=== PATIENT | female | born 1975 | race American Indian/Alaskan Native ===

== ENCOUNTER 2016-08-02 20:06 | Emergency (ER) | payer MEDICAID ==
[2016-08-02 20:45] VITALS: BMI 23.1
[2016-08-02 20:48] VITALS: O2SAT 98
--- NOTE | 2016-08-02 22:21 | ED PDOC ---
Arrival/HPI - General Chief Complaint: Back Pain Time Seen by Provider: 08/02/16 21:29 Historian: Patient - History of Present Illness Narrative History of Present Illness (Text): 08/02/16 22:37 41-year-old female presents today with left-sided neck pain and back pain since yesterday. Patient states while at work she was doing lots of heavy lifting and has an achy pain to the left side of the neck and the left upper back. No chest pain or shortness of breath. No fevers or chills. Patient denies urinary symptoms. She states she usually has problems in the left side of the neck. Denies weakness in the extremities. Denies bladder bowel incontinence. No abdominal pain. No other complaints Past Medical History - Provider Review Nursing Documentation Reviewed: Yes - Travel History Have you recently traveled outside [place] w/in the past 3 mons?: No - Infectious Disease Hx of Infectious Diseases: None - Tetanus Immunization Tetanus Immunization: Unknown - Psychiatric Hx Substance Use: No - Anesthesia Hx Anesthesia: No Hx Anesthesia Reactions: No Hx Malignant Hyperthermia: No - Suicidal Assessment Feels Threatened In Home Enviroment: No Family/Social History - Physician Review Nursing Documentation Reviewed: Yes Family/Social History: Unknown Family HX Smoking Status: Former Smoker Hx Alcohol Use: No Hx Substance Use: No Allergies/Home Meds Allergies/Adverse Reactions: Allergies No Known Allergies Allergy (Verified 08/02/16 20:48) Review of Systems - Review of Systems Constitutional: absent: Fatigue, Fevers Respiratory: absent: SOB, Cough Cardiovascular: absent: Chest Pain, Palpitations Gastrointestinal: absent: Abdominal Pain, Constipation, Diarrhea, Nausea, Vomiting Genitourinary Female: absent: Dysuria, Frequency, Hematuria Musculoskeletal: Back Pain, Neck Pain. absent: Arthralgias Skin: absent: Rash, Pruritis Neurological: absent: Headache, Dizziness Physical Exam Vital Signs Reviewed: Yes Vital Signs Temp Pulse Resp BP Pulse Ox 08/02/16 20:48 98.7 F 89 18 107/54 L 98 Temperature: Afebrile Blood Pressure: Normal Pulse: Regular Respiratory Rate: Normal Appearance: Positive for: Well-Appearing, Non-Toxic, Comfortable Pain Distress: None Mental Status: Positive for: Alert and Oriented X 3 - Systems Exam Head: Present: Atraumatic Mouth: Present: Moist Mucous Membranes Neck: Present: Normal Range of Motion, Paraspinal Tenderness (+ left sided paraspinal and trapezius tenderness. ), Trachea Midline. No: Meningeal Signs, MIDLINE TENDERNESS Respiratory/Chest: Present: Clear to Auscultation, Good Air Exchange. No: Respiratory Distress, Accessory Muscle Use Cardiovascular: Present: Regular Rate and Rhythm, Normal S1, S2. No: Murmurs Abdomen: No: Tenderness Back: Present: Normal Inspection, Paraspinal Tenderness (+ minimal left sided thoracic paraspinal tenderness, tenderness inferior left scapula). No: CVA Tenderness, Midline Tenderness Upper Extremity: No: Normal Inspection Lower Extremity: No: Normal Inspection Neurological: No: GCS=15, Speech Normal Skin: Present: Warm, Dry, Normal Color. No: Rashes Psychiatric: Present: Alert, Oriented x 3 Medical Decision Making ED Course and Treatment: 08/02/16 22:46 Patient nontoxic well-appearing in no distress with stable vital signs. toradol and flexeril. Patient reassessment: Feeling better with medications ambulating with a steady gait. Muscle strength 5 out of 5 bilaterally. I advised to followup with the orthopedist within the next 2 days. Return if symptoms worsen persist or new symptoms develop Patient verbalizes understanding of discharge instructions and need for immediate followup. all aspects of this case were discussed the attending of record. Impression: Back pain, neck pain Motrin every 6 hours as needed for pain Flexeril one tablet every 8 hours as needed for muscle spasms: May cause drowsiness Followup with the orthopedist within the next 2 days Followup with primary care physician within the next 2 days Return if symptoms worsen persist or if new symptoms develop - Medication Orders Current Medication Orders: Discontinued Medications Cyclobenzaprine HCl (Flexeril) 10 mg PO STAT STA Stop: 08/02/16 21:37 Last Admin: 08/02/16 22:07 Dose: 10 MG Ketorolac Tromethamine (Toradol) 60 mg IM STAT STA Stop: 08/02/16 21:37 Last Admin: 08/02/16 22:07 Dose: 60 MG IM Administration Charges Document 08/02/16 22:07 ANDREA (Rec: 08/02/16 22:07 ANDREA [id number]) Injection Site MAR Injection Site Right Deltoid Charges for Administration # of IM Administrations 1 Disposition/Present on Arrival - Present on Arrival Any Indicators Present on Arrival: No History of DVT/PE: No History of Uncontrolled Diabetes: No Urinary Catheter: No History of Decub. Ulcer: No History Surgical Site Infection Following: None - Disposition Have Diagnosis and Disposition been Completed?: Yes Diagnosis: Back pain, Neck pain Disposition: HOME/ ROUTINE Disposition Time: 22:30 Patient Plan: Discharge Condition: GOOD Discharge Instructions (ExitCare): Back Pain (ED) Additional Instructions: Motrin every 6 hours as needed for pain Flexeril one tablet every 8 hours as needed for muscle spasms: May cause drowsiness Followup with the orthopedist within the next 2 days Followup with primary care physician within the next 2 days Return if symptoms worsen persist or if new symptoms develop Prescriptions: Cyclobenzaprine [Cyclobenzaprine HCl] 10 mg PO Q8 #10 tab Ibuprofen [Motrin] 600 mg PO Q6H PRN #20 tab PRN Reason: pain/fever reduction Referrals: Graciela Cee MD [Primary Care Provider] - Follow up with primary Michael Liu MD [Staff Provider] - Follow up with primary Forms: WORK NOTE
[2016-08-03 02:47] VITALS: BP 110/67; PULSE 74; RESP 17; TEMP 98.4
== END 2016-08-02 22:50 | disposition home or self-care (01) ==
LOC: ED 20:06
DX: M54.2 Cervicalgia (principal); M54.9 Dorsalgia, unspecified
CPT/HCPCS: 96372; 99283; J1885

== ENCOUNTER 2016-10-25 15:28 | Emergency (ER) | payer MEDICAID ==
[2016-10-25 15:43] VITALS: BP 107/73; PULSE 98; RESP 18; TEMP 98.7; O2SAT 99; BMI 25.0
--- NOTE | 2016-10-25 17:05 | ED PDOC ---
Arrival/HPI - General Chief Complaint: Lower Extremity Problem/Injury Time Seen by Provider: 10/25/16 15:47 Historian: Patient - History of Present Illness Narrative History of Present Illness (Text): 10/25/16 16:54 41yo female present with complaint of b/l ankle swelling and toes pain and nail discoloration. she also complained of left sided crampy neck pain intermittently x months. states she was seen here in ED for the neck pain before. states pain usually resolve with OTC analgesic. She states that toe pain started 2weeks ago. States she stands for prolonged period at a time while at work. Denies calf pain, SOB, chest pain, recent travel, trauma, OCP use, any other complaint. Past Medical History - Provider Review Nursing Documentation Reviewed: Yes - Infectious Disease Hx of Infectious Diseases: None - Tetanus Immunization Tetanus Immunization: Unknown - Psychiatric Hx Substance Use: No - Anesthesia Hx Anesthesia: No Hx Anesthesia Reactions: No Hx Malignant Hyperthermia: No - Suicidal Assessment Feels Threatened In Home Enviroment: No Family/Social History - Physician Review Nursing Documentation Reviewed: Yes Family/Social History: Unknown Family HX Smoking Status: Former Smoker Hx Alcohol Use: Yes Frequency of alcohol use: Socially Hx Substance Use: No Allergies/Home Meds Allergies/Adverse Reactions: Allergies No Known Allergies Allergy (Verified 10/25/16 15:43) Review of Systems - Physician Review All systems were reviewed & negative as marked: Yes - Review of Systems Constitutional: Normal Eyes: Normal ENT: Normal Respiratory: Normal Cardiovascular: Normal Gastrointestinal: Normal Genitourinary Female: Normal Musculoskeletal: Arthralgias (B/L toe pain), Neck Pain Skin: Normal Neurological: Normal Endocrine: Normal Hemo/Lymphatic: Normal Psychiatric: Normal Physical Exam Vital Signs Reviewed: Yes Vital Signs Temp Pulse Resp BP Pulse Ox 10/25/16 17:19 18 99 10/25/16 15:35 98.7 F 98 H 18 107/73 99 Temperature: Afebrile Blood Pressure: Normal Pulse: Regular Respiratory Rate: Normal Appearance: Positive for: Well-Appearing, Non-Toxic, Comfortable Pain Distress: None Mental Status: Positive for: Alert and Oriented X 3 - Systems Exam Head: Present: Atraumatic, Normocephalic Pupils: Present: PERRL Extroacular Muscles: Present: EOMI Conjunctiva: Present: Normal Mouth: Present: Moist Mucous Membranes Neck: Present: Normal Range of Motion. No: MIDLINE TENDERNESS, Paraspinal Tenderness Respiratory/Chest: Present: Clear to Auscultation, Good Air Exchange. No: Respiratory Distress, Accessory Muscle Use Cardiovascular: Present: Regular Rate and Rhythm, Normal S1, S2. No: Murmurs Abdomen: Present: Normal Bowel Sounds. No: Tenderness, Distention, Peritoneal Signs Back: Present: Normal Inspection Upper Extremity: Present: Normal Inspection. No: Cyanosis, Edema Lower Extremity: Present: Normal Inspection, NORMAL PULSES, Normal ROM, Neurovascularly Intact. No: Edema, CALF TENDERNESS, Tenderness, Swelling, Erythema, Deformity, Temperature Abnormalties Neurological: Present: GCS=15, CN II-XII Intact, Speech Normal Skin: Present: Warm, Dry, Normal Color. No: Rashes Psychiatric: Present: Alert, Oriented x 3, Normal Insight, Normal Concentration Medical Decision Making ED Course and Treatment: 10/26/16 01:01 B/L foot xray - No acute finding Result was DW the pt. she was advised to use compression stocking while at work and keep legs elevated at home. Referred to a Meteorological Engineer. TRT ED for any new or worsening symptoms. - RAD Interpretation Radiology Orders: 10/25/16 16:03 FOOT 3 VIEWS BI [RAD] Stat - Medication Orders Current Medication Orders: Discontinued Medications Cyclobenzaprine HCl (Flexeril) 10 mg PO STAT STA Stop: 10/25/16 16:05 Last Admin: 10/25/16 17:15 Dose: 10 mg Ibuprofen (Motrin Tab) 600 mg PO STAT STA Stop: 10/25/16 16:05 Last Admin: 10/25/16 17:14 Dose: 600 mg Disposition/Present on Arrival - Present on Arrival Any Indicators Present on Arrival: No History of DVT/PE: No History of Uncontrolled Diabetes: No Urinary Catheter: No History of Decub. Ulcer: No History Surgical Site Infection Following: None - Disposition Have Diagnosis and Disposition been Completed?: Yes Diagnosis: Neck pain, Toe pain Disposition: HOME/ ROUTINE Disposition Time: 17:10 Patient Plan: Discharge Condition: STABLE Discharge Instructions (ExitCare): Cervical Sprain (ED), Arthralgia (ED) Additional Instructions: Follow up with your Doctor/Meteorological Engineer Wear compression stockings while at work and elevate legs at home Return to ED for any new or worsening symptoms Prescriptions: Cyclobenzaprine [Cyclobenzaprine HCl] 10 mg PO TID #12 tab Ibuprofen [Motrin Tab] 600 mg PO Q6 #20 tab Referrals: Graciela Cee MD [Primary Care Provider] - Follow up with primary Lizzie Ansari DPM [Staff Provider] - Follow up with primary Forms: WORK NOTE
--- NOTE | 2016-10-26 10:53 | RAD ---
PROCEDURE: Bilateral Feet Radiographs. HISTORY: Foot pain COMPARISON: None. FINDINGS: BONES: Right Foot: Normal. No acute fracture. Left Foot: Normal. No acute fracture. JOINTS: Right Foot: Normal. No osteoarthritis. Left Foot: Normal. No osteoarthritis. SOFT TISSUES: Right Foot: Normal. Left Foot: Normal. OTHER FINDINGS: None. IMPRESSION: Normal examination.
== END 2016-10-25 17:20 | disposition home or self-care (01) ==
LOC: ED 15:28
DX: M79.675 Pain in left toe(s) (principal); M79.674 Pain in right toe(s); M54.2 Cervicalgia

== ENCOUNTER 2017-08-20 14:18 | Emergency (ER) | payer BC, MEDICAID ==
[2017-08-20 14:19] VITALS: BMI 25.0
[2017-08-20 14:29] VITALS: BP 117/74; PULSE 81; RESP 16; TEMP 98.7; O2SAT 98
[2017-08-20] MEDS ORDERED: Oxycodone/Acetaminophen 5/325 mg Tab PO STA (14:56)
--- NOTE | 2017-08-20 15:03 | ED PDOC ---
Arrival/HPI - General Chief Complaint: Back Pain Time Seen by Provider: 08/20/17 14:55 Historian: Patient - History of Present Illness Narrative History of Present Illness (Text): 08/20/17 14:56 pt p/w + ~ 1day onset of worsening left lower neck pain/aches/burning/cramping; pt has had similar discomfort/pain to her neck region since 2014; pt states no fever/chills/sweats, no new cp, no sob/palpitations, no abd pain, no n/v, no numbness/tingling, no arm weakness, no urinary/bowel changes, no fall/trauma/ sick contact, no travel; pt states her usual triggers for her pain is due to sudden changes in weather and 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 pt states she usually takes either tylenol/motrin for occasional discomfort relief but the OTC meds are not helping currently pt states her usual pain is ~ 5/10 pt is here for further eval pt's without other complaints pt denied arm weakness/numbness/tingling PCP: DR MASON pt is right hand dominate family hx: HTN/DM, no immediate family member with sudden/early AMI (under 50yo) Time/Duration: 24 hours Symptom Onset: Sudden Symptom Course: Worsening Quality: Stabbing Severity Level: 9, Severe Activities at Onset: Other (working/moving) Context: Home, Work Past Medical History - Provider Review Nursing Documentation Reviewed: Yes - Travel History Have you recently traveled outside [place] w/in the past 3 mons?: No - Past History Past History: No Previous - Infectious Disease Hx of Infectious Diseases: None - Tetanus Immunization Tetanus Immunization: Unknown - Reproductive Menopause: No Currently : No - Psychiatric Hx Psychophysiologic Disorder: No Hx Substance Use: No - Anesthesia Hx Anesthesia: No Hx Anesthesia Reactions: No Hx Malignant Hyperthermia: No - Suicidal Assessment Feels Threatened In Home Enviroment: No Family/Social History - Physician Review Nursing Documentation Reviewed: Yes Family/Social History: No Known Family HX Smoking Status: Former Smoker Hx Alcohol Use: Yes Hx Substance Use: No Hx Substance Use Treatment: No Allergies/Home Meds Allergies/Adverse Reactions: Allergies No Known Allergies Allergy (Verified 08/20/17 14:24) Review of Systems - Review of Systems Constitutional: Normal Eyes: Normal ENT: Normal Respiratory: Normal Cardiovascular: Normal Gastrointestinal: Normal Genitourinary Female: Normal Musculoskeletal: Neck Pain. absent: Back Pain Skin: Normal Neurological: Normal Endocrine: Normal Hemo/Lymphatic: Normal Psychiatric: Normal Physical Exam Vital Signs Reviewed: Yes Vital Signs Temp Pulse Resp BP Pulse Ox 08/20/17 14:24 98.7 F 81 16 117/74 98 08/20/17 14:19 98.7 F 81 16 117/74 98 Temperature: Afebrile Blood Pressure: Normal Pulse: Regular Respiratory Rate: Normal Appearance: Positive for: Well-Appearing, Non-Toxic, Uncomfortable, Other (alert /awake, GCS = 15, oriented x 3, uncomfortable, sitting at the bedside, cooperative, mild distress during exam due to pain) Pain Distress: Mild Mental Status: Positive for: Alert and Oriented X 3 - Systems Exam Head: Present: Atraumatic, Normocephalic Pupils: Present: PERRL, Other (no nystagmus, no photophobia, sclera anicteric, visual field intact b/l) Extroacular Muscles: Present: EOMI Conjunctiva: Present: Normal Ears: Present: Normal Mouth: Present: Moist Mucous Membranes, Normal Teeth, Other (no drooling/stridor , no exudate/lesions, uvula/tongue are midline, no dyspphonia) Pharnyx: Present: Normal Nose (External): Present: Atraumatic Nose (Internal): Present: Normal Inspection Neck: Present: Trachea Midline, Other (+ left lower para-cervical tenderness, + left lateral base of the neck tenderness on exam, decr ROM to neck on rotation looking to the left >> right; no step off, no midline tenderness; no gross deformities noted). No: Meningeal Signs, MIDLINE TENDERNESS Respiratory/Chest: Present: Clear to Auscultation, Good Air Exchange, Other ( CTA b/l, no w/r/r, no accessory muscle use noted, no tachypenia). No: Respiratory Distress, Accessory Muscle Use Cardiovascular: Present: Regular Rate and Rhythm, Normal S1, S2. No: Murmurs Abdomen: Present: Normal Bowel Sounds, Other (well nourished female, no focal tenderness, no masses/rebound/guarding/rigidity, no saez's sign, no mcburney' s point tenderness) Back: Present: Normal Inspection. No: CVA Tenderness, Midline Tenderness Upper Extremity: Present: Normal Inspection, Normal ROM, NORMAL PULSES, Neurovascularly Intact, Capillary Refill < 2s Lower Extremity: Present: Normal Inspection, NORMAL PULSES, Normal ROM, Neurovascularly Intact, Capillary Refill < 2 s Neurological: Present: GCS=15, CN II-XII Intact, Speech Normal Skin: Present: Warm, Normal Color, Other (cap refill < 1sec, no ulcerations, no petechiae, no rashes). No: Rashes Psychiatric: Present: Alert, Oriented x 3 Medical Decision Making ED Course and Treatment: 08/20/17 14:56 Impression: left lower neck pain/radiculopathy i have consider all the differential diagnosis regarding pt's chief medical complaints/clinical findings, including but are not limited to: left lower neck pain/radiculopathy A/P: left lower neck pain/radiculopathy - supportive care - observe/reevaluation 08/20/17 15:35 pt states her pain is improved, 6-/10 pt is made aware of her medical results pt is encouraged no heavy lifting pt will f/u as directed pt will be discharged home Re-evaluation Time: 15:29 Reassessment Condition: Improving,but remains with symptoms - EKG Interpretation EKG Interpretation (Text): 08/20/17 15:30 NSR at 65 bpm, normal axis, no ectopy, no st-t changes, NORMAL EKG; unchanged compare with old ekg 09/2015 Interpreted by ED Physician: Yes Type: 12 lead EKG Comparison: Similar to previous EKG - Medication Orders Current Medication Orders: Discontinued Medications Diazepam (Valium) 5 mg PO ONCE ONE PRN Reason: Protocol Stop: 08/20/17 14:57 Last Admin: 08/20/17 15:14 Dose: 5 mg Ketorolac Tromethamine (Toradol) 30 mg IM STAT STA Stop: 08/20/17 14:58 Last Admin: 08/20/17 15:13 Dose: 30 mg MAR Pain Assessment Document 08/20/17 15:13 SRE (Rec: 08/20/17 15:14 SRE [id number]) Pain Reassessment Is this a pain reassessment? Yes Sleep Is patient sleeping during reassessment? No Presence of Pain Presence of Pain Yes Pain Scale Used Pain Scale Used Numeric Location Pain Location Body Site Neck Description Description Intermittent IM Administration Charges Document 08/20/17 15:13 SRE (Rec: 08/20/17 15:14 SRE [id number]) Charges for Administration # of IM Administrations 1 Oxycodone/Acetaminophen (Percocet 5/325 Mg Tab) 1 tab PO STAT STA Stop: 08/20/17 14:57 Last Admin: 08/20/17 15:14 Dose: 1 tab MAR Pain Assessment Document 08/20/17 15:14 SRE (Rec: 08/20/17 15:14 SRE [id number]) Pain Reassessment Is this a pain reassessment? Yes Sleep Is patient sleeping during reassessment? No Presence of Pain Presence of Pain Yes Pain Scale Used Pain Scale Used Numeric Location Pain Location Body Site Neck Disposition/Present on Arrival - Present on Arrival Any Indicators Present on Arrival: No History of DVT/PE: No History of Uncontrolled Diabetes: No Urinary Catheter: No History of Decub. Ulcer: No History Surgical Site Infection Following: None - Disposition Have Diagnosis and Disposition been Completed?: Yes Diagnosis: Cervical radiculopathy, Neck pain, musculoskeletal Disposition: HOME/ ROUTINE Disposition Time: 15:31 Patient Plan: Discharge Patient Problems: Current Active Problems Problem Status Onset Cervical radiculopathy Acute Neck pain, musculoskeletal Acute Condition: STABLE Discharge Instructions (ExitCare): Radiculopathy (DC), Chronic Neck Pain (DC) Print Language: CANADIAN Additional Instructions: Make sure to see your doctor in 1-2 days DRINK PLENTY OF FLUIDS take your medications as prescribed AVOID heavy weight bearing RETURN TO ED IF worse pain, cant breath, persistent vomiting, high fever >101- 102 for hours, altered behavior, slurr speech, facial changes, focal weakness ( arm/leg or both), unable to urinate, heavy/persistent bleeding, passing out, chest pain, or other medical emergencies Prescriptions: diaZEpam [Valium] 5 mg PO TID PRN #12 tab PRN Reason: Muscle Spasm Ibuprofen [Motrin] 600 mg PO QID PRN #30 tab PRN Reason: Pain, Mild (1-3) oxyCODONE/Acetaminophen [Percocet 5/325 mg Tab] 1 tab PO QID PRN #12 tab PRN Reason: Pain, Moderate (4-7) Referrals: [facility] [Outside] - Follow up with primary Michael Liu MD [Staff Provider] - Follow up with primary Neeraj Parikh MD [Staff Provider] - Follow up with primary Forms: [employer] (Ukrainian), WORK NOTE
--- NOTE | 2017-08-21 09:05 | CARD ---
APPROVED REPORT EKG Measurement Heart [id number] <Conclusion> Normal sinus rhythm Normal ECG No change
== END 2017-08-20 16:05 | disposition home or self-care (01) ==
LOC: ED 14:18
DX: M54.12 Radiculopathy, cervical region (principal); M54.2 Cervicalgia; Z87.891 Personal history of nicotine dependence
CPT/HCPCS: 93005; 96372; 99283; J1885

== ENCOUNTER 2017-10-31 18:14 | Emergency (ER) | payer BC ==
[2017-10-31 20:56] VITALS: BP 178/77; PULSE 83; RESP 18; TEMP 98.5; O2SAT 98
[2017-10-31 20:59] VITALS: BMI 49.1
== END 2017-10-31 20:57 | disposition left against medical advice (07) ==
LOC: ED 18:14
DX: Z02.89 Encounter for other administrative examinations (principal); M54.2 Cervicalgia

== ENCOUNTER 2017-10-31 20:20 | Emergency (ER) | payer BC ==
[2017-10-31 20:59] VITALS: BMI 49.1
--- NOTE | 2017-10-31 21:15 | ED PDOC ---
Arrival/HPI <KevinFuentes - Last Filed: 10/31/17 21:38> - General Historian: Patient - History of Present Illness Time/Duration: > month Symptom Onset: Gradual Symptom Course: Improving Quality: Burning Severity Level: 4 <ColemanButch - Last Filed: 10/31/17 23:23> - General Chief Complaint: Back Pain - History of Present Illness Narrative History of Present Illness (Text): Patient is a 42 year old female with no significant past medical history who presents to the emergency department for evaluation and treatment of neck and back pain which originally began 3 years and exacerbated 2 day ago with no specific provoking event. Denies trauma to areas of pain. States pain originates in the occiput and radiates down to level of T9. Characterizes the pain as being a burning sensation. States she believes stiffness and pain are secondary to working in cold environment. Denies associated headache, visual/ auditory problems, and dizziness. Further denies fever, chills, chest pain, SOB , abdominal pain, nausea, vomiting, diarrhea, constipation, and urinary symptoms. 10/31/17 21:23 (Btuch Cee) Past Medical History - Past History Past History: No Previous - Infectious Disease Hx of Infectious Diseases: None - Tetanus Immunization Tetanus Immunization: Unknown - Psychiatric Hx Psychophysiologic Disorder: No Hx Substance Use: No - Anesthesia Hx Anesthesia: No Hx Anesthesia Reactions: No Hx Malignant Hyperthermia: No - Suicidal Assessment Feels Threatened In Home Enviroment: No <Butch Cee - Last Filed: 10/31/17 23:23> Family/Social History - Physician Review Nursing Documentation Reviewed: Yes Family/Social History: Unknown Family HX Smoking Status: Former Smoker Hx Alcohol Use: Yes Hx Substance Use: No Hx Substance Use Treatment: No <Butch Cee - Last Filed: 10/31/17 23:23> Allergies/Home Meds <KeivnFuentes - Last Filed: 10/31/17 21:38> <Butch Cee - Last Filed: 10/31/17 23:23> Allergies/Adverse Reactions: Allergies No Known Allergies Allergy (Verified 08/20/17 14:24) Review of Systems - Physician Review All systems were reviewed & negative as marked: Yes - Review of Systems Constitutional: Normal Eyes: Normal ENT: Normal Respiratory: Normal Cardiovascular: Normal Gastrointestinal: Normal Genitourinary Female: Normal Musculoskeletal: Neck Pain Skin: Normal Neurological: Normal Endocrine: Normal Hemo/Lymphatic: Normal Psychiatric: Normal <Butch Cee - Last Filed: 10/31/17 23:23> Physical Exam - Systems Exam Head: Present: Atraumatic, Normocephalic Pupils: Present: PERRL Extroacular Muscles: Present: EOMI Conjunctiva: Present: Normal Mouth: Present: Moist Mucous Membranes Neck: Present: Other (stiffness when rotating, limits full range of motion). No : MIDLINE TENDERNESS, Paraspinal Tenderness Respiratory/Chest: Present: Clear to Auscultation, Good Air Exchange. No: Respiratory Distress, Accessory Muscle Use Cardiovascular: Present: Regular Rate and Rhythm, Normal S1, S2. No: Murmurs Abdomen: No: Tenderness, Distention, Peritoneal Signs Back: Present: Normal Inspection Upper Extremity: Present: Normal Inspection. No: Cyanosis, Edema Lower Extremity: Present: Normal Inspection. No: Edema Neurological: Present: GCS=15, CN II-XII Intact, Speech Normal Skin: Present: Warm, Dry, Normal Color. No: Rashes Psychiatric: Present: Alert, Oriented x 3, Normal Insight, Normal Concentration <Butch Cee - Last Filed: 10/31/17 23:23> Medical Decision Making <Fuentes Brown - Last Filed: 10/31/17 21:38> <Butch Cee - Last Filed: 10/31/17 23:23> ED Course and Treatment: 10/31/17 21:38 42 year old female presents to the Emergency department for evaluation of neck and back discomfort. In agreement with resident note, which includes further HPI details. Patient was seen and evaluated with resident, came up with plan and treatment together. (Fuentes Brown) Assessment and Plan: Patient is a 42 year old female with no significant past medical history who presents to the emergency department for evaluation and treatment of neck and back pain Neck/Back Pain - Cervical and thoracic xray - flexeril 10/31/17 21:24 - cervical and thoracic xrays- no acute fractures or dislocations 10/31/17 23:22 - patient ok for discharge to home (Butch Cee) - RAD Interpretation Radiology Orders: 10/31/17 21:13 CERVICAL SPINE AP & LATERAL [RAD] Stat THORACIC SPINE [DORSAL (THORACIC) SPINE] [RAD] Stat - Medication Orders Current Medication Orders: Discontinued Medications Cyclobenzaprine HCl (Flexeril) 5 mg PO STAT STA Stop: 10/31/17 21:15 Last Admin: 10/31/17 22:06 Dose: 5 mg - PA / RADIOLOGY SPECIALIST / Resident Statement / has reviewed & agrees with the documentation as recorded. MD/DO has examined the patient and agrees with the treatment plan. - Scribe Statement The provider has reviewed the documentation as recorded by the Scribe <Fuentes Brown - Last Filed: 10/31/17 21:38> <Butch Cee - Last Filed: 10/31/17 23:23> - Scribe Statement Pat Manuel. All medical record entries made by the Scribe were at my direction and personally dictated by me. I have reviewed the chart and agree that the record accurately reflects my personal performance of the history, physical exam, medical decision making, and the department course for this patient. I have also personally directed, reviewed, and agree with the discharge instructions and disposition. (Fuentes Brown) Disposition/Present on Arrival <Fuentes Brown - Last Filed: 10/31/17 21:38> - Present on Arrival Any Indicators Present on Arrival: No History of DVT/PE: No History of Uncontrolled Diabetes: No Urinary Catheter: No History Surgical Site Infection Following: None - Disposition Have Diagnosis and Disposition been Completed?: Yes Disposition Time: 23:16 Patient Plan: Discharge <Butch Cee - Last Filed: 10/31/17 23:23> - Disposition Diagnosis: Neck ache Disposition: HOME/ ROUTINE Patient Problems: Current Active Problems Problem Status Onset Neck pain Acute Condition: GOOD Discharge Instructions (ExitCare): Generalized Neck Pain (DC) Additional Instructions: DEDRICK GAN, thank you for letting us take care of you today. Your provider was Fuentes Brown MD and you were treated for NECK PAIN. The emergency medical care you received today was directed at your acute symptoms. If you were prescribed any medication, please fill it and take as directed. It may take several days for your symptoms to resolve. Return to the Emergency Department if your symptoms worsen, do not improve, or if you have any other problems. Please contact your doctor or call one of the physicians/clinics you have been referred to that are listed on the Patient Visit Information form that is included in your discharge packet. Bring any paperwork you were given at discharge with you along with any medications you are taking to your follow up visit. Our treatment cannot replace ongoing medical care by a primary care provider outside of the emergency department. Thank you for allowing the [facility] team to be part of your care today. If you had an X-Ray or CT scan: A Radiologist will review the ED reading if any change in treatment is needed we will contact you. If you had a blood, urine, or wound culture: It will take several days for the results, if any change in treatment is needed we will contact you. If you had an STI test: It will take 48 hours for the results. Please call after 1 week if you have not heard back. Prescriptions: Cyclobenzaprine [Flexeril] 5 mg PO TID PRN 7 Days tab PRN Reason: muscle spasm Referrals: Graciela Cee MD [Primary Care Provider] - Follow up with primary Forms: [employer] ([place]), WORK NOTE
[2017-11-01 01:25] VITALS: BP 134/73; PULSE 88; RESP 18; TEMP 98.4; O2SAT 98
--- NOTE | 2017-11-01 08:44 | RAD ---
PROCEDURE: Cervical Spine Radiographs. HISTORY: Pain. COMPARISON: None. FINDINGS: BONES: Mild reversal cervical curvature. No fracture or spondylolisthesis. The odontoid process appears intact. DISC SPACES: Normal. SOFT TISSUES: Normal. No prevertebral soft tissue swelling. OTHER FINDINGS: None. IMPRESSION: Reversal of cervical curvature without fracture or spondylolisthesis identified.
--- NOTE | 2017-11-01 08:46 | RAD ---
HISTORY: pain COMPARISON: No prior. FINDINGS: BONES: Mild straightening of the thoracic curvature without fracture or spondylolisthesis identified. No destructive bony lesion appreciated. DISC SPACES: Minimal inferior thoracic spondylosis at multiple levels. No marked disc height loss or significant endplate sclerosis. SOFT TISSUES: Normal. OTHER FINDINGS: None. 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 Mild straightening of lumbar curvature. No fracture or spondylolisthesis.
== END 2017-10-31 23:20 | disposition home or self-care (01) ==
LOC: ED 20:20
DX: M54.2 Cervicalgia (principal)

== ENCOUNTER 2018-01-03 10:29 | Emergency (ER) | payer BC ==
[2018-01-03 10:57] VITALS: BMI 25.8
--- NOTE | 2018-01-03 10:58 | ED PDOC ---
Arrival/HPI - General Time Seen by Provider: 01/03/18 10:39 Historian: Patient - History of Present Illness Narrative History of Present Illness (Text): 01/03/18 10:57 42yo female with no pmhx who present with complaint of left shoulder pain. She reports history of same pain in the past. states it usually resolve with flexeril, but she ran out of flexeril. States she have seen her Doctor for it and was also seen here in the past for it. Denies chest pain, paresthesia, focal weakness. Past Medical History - Provider Review Nursing Documentation Reviewed: Yes - Past History Past History: No Previous - Infectious Disease Hx of Infectious Diseases: None - Tetanus Immunization Tetanus Immunization: Unknown - Psychiatric Hx Psychophysiologic Disorder: No Hx Substance Use: No - Anesthesia Hx Anesthesia: No Hx Anesthesia Reactions: No Hx Malignant Hyperthermia: No - Suicidal Assessment Feels Threatened In Home Enviroment: No Family/Social History - Physician Review Nursing Documentation Reviewed: Yes Family/Social History: Unknown Family HX Smoking Status: Former Smoker Hx Alcohol Use: Yes Hx Substance Use: No Hx Substance Use Treatment: No Allergies/Home Meds Allergies/Adverse Reactions: Allergies No Known Allergies Allergy (Verified 08/20/17 14:24) Physical Exam Vital Signs Reviewed: Yes Vital Signs Temp Pulse Resp BP Pulse Ox 01/03/18 11:33 98.1 F 80 17 98 01/03/18 11:22 98.3 F 80 19 123/85 99 Temperature: Afebrile Blood Pressure: Normal Pulse: Regular Respiratory Rate: Normal Appearance: Positive for: Well-Appearing, Non-Toxic, Comfortable Pain Distress: None Mental Status: Positive for: Alert and Oriented X 3 - Systems Exam Head: Present: Atraumatic, Normocephalic Pupils: Present: PERRL Extroacular Muscles: Present: EOMI Conjunctiva: Present: Normal Mouth: Present: Moist Mucous Membranes Neck: Present: Normal Range of Motion Respiratory/Chest: Present: Clear to Auscultation, Good Air Exchange. No: Respiratory Distress, Accessory Muscle Use Cardiovascular: Present: Regular Rate and Rhythm, Normal S1, S2. No: Murmurs Abdomen: No: Tenderness, Distention, Peritoneal Signs Back: Present: Normal Inspection Upper Extremity: Present: Normal ROM (With pain on full abduction), NORMAL PULSES, Tenderness (Proximal left shoulder), Neurovascularly Intact, Capillary Refill < 2s. No: Cyanosis, Edema, Deformity Lower Extremity: Present: Normal Inspection. No: Edema Neurological: Present: GCS=15, CN II-XII Intact, Speech Normal Skin: Present: Warm, Dry, Normal Color. No: Rashes Psychiatric: Present: Alert, Oriented x 3, Normal Insight, Normal Concentration Medical Decision Making - Medication Orders Current Medication Orders: Discontinued Medications Cyclobenzaprine HCl (Flexeril) 10 mg PO STAT STA Stop: 01/03/18 11:02 Last Admin: 01/03/18 11:31 Dose: 10 mg Ketorolac Tromethamine (Toradol) 60 mg IM STAT STA Stop: 01/03/18 11:02 Last Admin: 01/03/18 11:30 Dose: 60 mg MAR Pain Assessment Document 01/03/18 11:30 [email or web address] (Rec: 01/03/18 11:30 [email or web address] [id number]) Pain Reassessment Is this a pain reassessment? No Sleep Is patient sleeping during reassessment? No Presence of Pain Presence of Pain Yes Pain Scale Used Pain Scale Used Numeric Location Pain Location Body Site Neck Description Description Constant Intensity of Pain at present 3 Pain Behavior Facial Grimacing Aggravating Factors Changing Position Alleviating Factors/Management Medication Techniques Alleviating Factors Medication IM Administration Charges Document 01/03/18 11:30 [email or web address] (Rec: 01/03/18 11:30 [email or web address] [id number]) Injection Site MAR Injection Site Left Gluteus Arun Charges for Administration # of IM Administrations 1 Disposition/Present on Arrival - Present on Arrival Any Indicators Present on Arrival: No History of DVT/PE: No History of Uncontrolled Diabetes: No Urinary Catheter: No History Surgical Site Infection Following: None - Disposition Have Diagnosis and Disposition been Completed?: Yes Diagnosis: Neck pain Disposition: HOME/ ROUTINE Disposition Time: 12:40 Patient Plan: Discharge Condition: STABLE Additional Instructions: Follow up with your doctor Return to ED for any new or worsening symptoms Prescriptions: Cyclobenzaprine [Cyclobenzaprine HCl] 10 mg PO BID #12 tab Ibuprofen [Motrin Tab] 600 mg PO Q6 #20 tab Referrals: Azalia Dunn MD [Medical Doctor] - Follow up with primary Forms: WORK NOTE
[2018-01-03 11:22] VITALS: BP 123/85; PULSE 80
[2018-01-03 11:34] VITALS: RESP 17; TEMP 98.1; O2SAT 98
== END 2018-01-03 11:33 | disposition home or self-care (01) ==
LOC: ED 10:29
DX: M54.2 Cervicalgia (principal); Z87.891 Personal history of nicotine dependence
CPT/HCPCS: 96372; 99282; J1885

== ENCOUNTER 2018-06-19 20:19 | Emergency (ER) | payer SELFPAY ==
[2018-06-19 20:57] VITALS: BP 122/82; PULSE 84; RESP 18; TEMP 98.1; BMI 23.1
--- NOTE | 2018-06-19 21:21 | ED PDOC ---
Arrival/HPI - General Chief Complaint: Upper Extremity Problem/Injury Time Seen by Provider: 06/19/18 20:55 Historian: Patient - History of Present Illness Narrative History of Present Illness (Text): 42 y/o female with no significant PMH presents to the ED c/o left shoulder pain x 4 years. States the pain worsened over the summer months and has been consistent since that time. Describes pain as an ache that starts in her neck and travels to the left shoulder over the course of the trapezius. Pt has been seen here for this issue in the past, last in december of 2017. States that the pain is usually relieved with flexeril. States that her job requires a lot of standing and repetitive motion, and she has been working more often over the last few months, stating she believes it is contributing to her pain. Also mentions she has not have her LMP in 1.5 months and has been experiencing worsening sinus congestion for the last 2 weeks. Denies fevers, chills, numbness, paresthesias, weakness, chest pain, SOB, trauma/injury, cough, headache, vision changes, dizziness, urinary symptoms, vaginal discharge, vaginal bleeding, pelvic pain, or any other associated symptoms. Past Medical History - Provider Review Nursing Documentation Reviewed: Yes - Past History Past History: No Previous - Infectious Disease Hx of Infectious Diseases: None - Tetanus Immunization Tetanus Immunization: Unknown - Reproductive Currently : No - Cardiac Hx Cardiac Disorders: No - Pulmonary Hx Respiratory Disorders: No - Neurological Hx Neurological Disorder: No - HEENT Hx HEENT Disorder: No - Renal Hx Renal Disorder: No - Endocrine/Metabolic Hx Endocrine Disorders: No - Hematological/Oncological Hx Blood Disorders: No - Integumentary Hx Dermatological Disorder: No - Musculoskeletal/Rheumatological Hx Musculoskeletal Disorders: Yes - Gastrointestinal Hx Gastrointestinal Disorders: No - Genitourinary/Gynecological Hx Genitourinary Disorders: No - Psychiatric Hx Psychophysiologic Disorder: No Hx Substance Use: No - Anesthesia Hx Anesthesia: No Hx Anesthesia Reactions: No Hx Malignant Hyperthermia: No - Suicidal Assessment Feels Threatened In Home Enviroment: No Family/Social History - Physician Review Nursing Documentation Reviewed: Yes Family/Social History: No Known Family HX Smoking Status: Former Smoker Hx Alcohol Use: Yes Hx Substance Use: No Hx Substance Use Treatment: No Allergies/Home Meds Allergies/Adverse Reactions: Allergies No Known Allergies Allergy (Verified 06/19/18 20:49) Review of Systems - Physician Review All systems were reviewed & negative as marked: Yes - Review of Systems Constitutional: Normal. absent: Fevers Eyes: Normal. absent: Vision Changes, Photophobia ENT: Sinus Congestion. absent: Sore Throat Respiratory: Normal. absent: SOB, Cough Cardiovascular: Normal. absent: Chest Pain, Palpitations Gastrointestinal: Normal. absent: Abdominal Pain, Nausea, Vomiting Genitourinary Female: Normal. absent: Dysuria, Frequency Musculoskeletal: Back Pain, Neck Pain. absent: Arthralgias Skin: Normal. absent: Rash Neurological: Normal. absent: Headache, Dizziness Endocrine: Normal Hemo/Lymphatic: Normal Psychiatric: Normal Physical Exam Vital Signs Reviewed: Yes Vital Signs Temp Pulse Resp BP Pulse Ox 06/19/18 20:49 98.1 F 84 18 122/82 96 Temperature: Afebrile Blood Pressure: Normal Pulse: Regular Respiratory Rate: Normal Appearance: Positive for: Well-Appearing, Non-Toxic, Comfortable Pain Distress: None Mental Status: Positive for: Alert and Oriented X 3 - Systems Exam Head: Present: Atraumatic, Normocephalic Pupils: Present: PERRL Extroacular Muscles: Present: EOMI Conjunctiva: Present: Normal Mouth: Present: Moist Mucous Membranes Nose (External): Present: Atraumatic Nose (Internal): Present: Normal Inspection Neck: Present: Normal Range of Motion, Paraspinal Tenderness (left side with tenderness and spasm). No: Meningeal Signs, MIDLINE TENDERNESS Respiratory/Chest: Present: Clear to Auscultation, Good Air Exchange. No: Respiratory Distress, Accessory Muscle Use Cardiovascular: Present: Regular Rate and Rhythm, Normal S1, S2, Peripheal Pulses Present Abdomen: Present: Normal Bowel Sounds. No: Tenderness, Distention, Peritoneal Signs Back: Present: Normal Inspection, Paraspinal Tenderness (left upper trapezius with tenderness and spasm). No: CVA Tenderness Upper Extremity: Present: Normal Inspection, Normal ROM, NORMAL PULSES, Neurovascularly Intact, Capillary Refill < 2s. No: Cyanosis, Edema, Temperature Abnormalties Lower Extremity: Present: Normal Inspection, NORMAL PULSES, Normal ROM, Neurovascularly Intact, Capillary Refill < 2 s. No: Edema, Temperature Abnormalties Neurological: Present: GCS=15, CN II-XII Intact, Speech Normal, Motor Func Grossly Intact, Normal Sensory Function, Gait Normal Skin: Present: Warm, Dry, Normal Color. No: Rashes Lymphatic: No: Cervical Adenopathy Psychiatric: Present: Alert, Oriented x 3, Normal Insight, Normal Concentration, Normal Affect, Normal Mood Medical Decision Making ED Course and Treatment: Initial Plan: * POC preg * UA * Toradol * Valium * Reassess and Disposition POC neg Labwork reviewed, unremarkable Patient reports decreased pain after medications. Advised orthopedic and PMD followup within 2 days Diagnostic testing results and plan of care discussed with patient. Strict instructions given regarding prescription use, importance of followup, and signs/symptoms to return to ER including chest pain, SOB, fever, chills, or any other new/worsening symptoms. Pt verbalized understanding of discussion. Patient is A&Ox3, ambulating with steady gait, with vital signs stable for discharge. - Lab Interpretations Lab Results: Lab Results 06/19/18 21:31: Urine Color yellow, Urine Appearance Clear, Urine pH 6.0, Ur Specific [place] >= 1.030, Urine Protein Trace H, Urine Glucose (UA) Negative, Urine Ketones Trace H, Urine Blood Trace-lysed H, Urine Nitrate Negative, Urine Bilirubin Negative, Urine Urobilinogen 0.2, Ur Leukocyte Esterase Negative, Urine RBC 5 - 10 H, Urine WBC 2 - 5, Ur Epithelial Cells 10 - 12 H I have reviewed the lab results: Yes Disposition/Present on Arrival - Present on Arrival Any Indicators Present on Arrival: No History of DVT/PE: No History of Uncontrolled Diabetes: No Urinary Catheter: No History of Decub. Ulcer: No History Surgical Site Infection Following: None - Disposition Have Diagnosis and Disposition been Completed?: Yes Diagnosis: Muscle spasm, Allergic rhinitis Disposition: HOME/ ROUTINE Disposition Time: 22:30 Patient Plan: Discharge Condition: IMPROVED Discharge Instructions (ExitCare): Seasonal Allergies (DC), Muscle Spasms (DC) Additional Instructions: Flexeril every 12 hours as needed for spasm, do not take before driving or operating heavy machinery Ibuprofen every 8 hours as needed for pain Flonase 2 sprays in each nostril daily Increase fluids Followup with primary doctor within 2 days Followup with orthopedics within 2 days Return to ER with any new/worsening symptoms Prescriptions: Cyclobenzaprine [Cyclobenzaprine HCl] 10 mg PO Q12H PRN #14 tab PRN Reason: Muscle Spasm Fluticasone Propionate [Flonase] 2 spr NS DAILY #1 bottle Ibuprofen [Motrin Tab] 600 mg PO Q8H PRN #30 tab PRN Reason: Pain, Moderate (4-7) Referrals: Michael Liu MD [Staff Provider] - Follow up with primary Forms: [employer] ([place]), WORK NOTE
[2018-06-19 21:42] LABS: URINE BILIRUBIN NEGATIVE (NEGATIVE); URINE BLOOD TRACE-LYSED (NEGATIVE); URINE GLUCOSE (UA) NEGATIVE (NEGATIVE); URINE LEUKOCYTE ESTERASE NEGATIVE Leu/uL (NEGATIVE); URINE PROTEIN TRACE mg/dL (<30 mg/dL); URINE UROBILINOGEN 0.2 E.U./dL (<1 E.U./dL)
[2018-06-19 21:44] LABS: URINE APPEARANCE CLEAR (CLEAR)
[2018-06-19 22:42] VITALS: O2SAT 98
== END 2018-06-19 22:41 | disposition home or self-care (01) ==
LOC: ED 20:19
DX: M62.838 Other muscle spasm (principal); J30.9 Allergic rhinitis, unspecified; Z87.891 Personal history of nicotine dependence
CPT/HCPCS: 81001; 81025; 96372; 99283; J1885

== ENCOUNTER 2018-07-03 19:48 | Emergency (ER) | payer SELFPAY ==
[2018-07-03 19:48] VITALS: BMI 25.8
[2018-07-03 20:02] VITALS: RESP 17
--- NOTE | 2018-07-03 20:47 | ED PDOC ---
Arrival/HPI - General Historian: Patient - History of Present Illness Narrative History of Present Illness (Text): 07/03/18 20:47 Patient is a 42F w/ no significant PMH presenting to ED w/ complaints of lower abdominal pain. Patient reported that lower abdominal pain is a cramping type sensation which began 2 days ago. She reported timing coincided w/ the end of her period for which FDLMP was on 06/26. She reported month prior she did not have her period. She stated that this month period was associated w/ heavier flow and clotting which was unusual for her. Denies any gynecologic history. Denies chest pain, sob, n/v/d/c, urinary symptoms. Denies vaginal discharge, or lesions, Patient is sexually active uses condoms. Time/Duration: Prior to Arrival Symptom Onset: Gradual Symptom Course: Worsening Quality: Cramping <Mariano Cee - Last Filed: 07/03/18 22:15> <Liban Maldonado - Last Filed: 07/05/18 05:44> - General Chief Complaint: Abdominal Pain Time Seen by Provider: 07/03/18 20:26 Past Medical History - Provider Review Nursing Documentation Reviewed: Yes - Past History Past History: No Previous - Infectious Disease Hx of Infectious Diseases: None - Tetanus Immunization Tetanus Immunization: Unknown - Cardiac Hx Cardiac Disorders: No - Pulmonary Hx Respiratory Disorders: No - Neurological Hx Neurological Disorder: No - HEENT Hx HEENT Disorder: No - Renal Hx Renal Disorder: No - Endocrine/Metabolic Hx Endocrine Disorders: No - Hematological/Oncological Hx Blood Disorders: No - Integumentary Hx Dermatological Disorder: No - Musculoskeletal/Rheumatological Hx Musculoskeletal Disorders: Yes - Gastrointestinal Hx Gastrointestinal Disorders: No - Genitourinary/Gynecological Hx Genitourinary Disorders: Yes Hx Urinary Tract Infection: Yes - Psychiatric Hx Psychophysiologic Disorder: No Hx Substance Use: No - Anesthesia Hx Anesthesia: No Hx Anesthesia Reactions: No Hx Malignant Hyperthermia: No - Suicidal Assessment Feels Threatened In Home Enviroment: No <Mariano Cee - Last Filed: 07/03/18 22:15> Family/Social History - Physician Review Nursing Documentation Reviewed: Yes Family/Social History: No Known Family HX Smoking Status: Former Smoker Hx Alcohol Use: Yes Hx Substance Use: No Hx Substance Use Treatment: No <Mariano Cee - Last Filed: 07/03/18 22:15> Allergies/Home Meds <Mariano Cee - Last Filed: 07/03/18 22:15> <Liban Maldonado - Last Filed: 07/05/18 05:44> Allergies/Adverse Reactions: Allergies No Known Allergies Allergy (Verified 07/03/18 19:58) Home Medications: Home Meds Medication Instructions Recorded Confirmed No Known Home Med 07/03/18 07/03/18 Review of Systems - Review of Systems Constitutional: Normal Eyes: Normal ENT: Normal Respiratory: Normal Cardiovascular: Normal Gastrointestinal: Abdominal Pain Genitourinary Female: Normal Musculoskeletal: Normal Skin: Normal Neurological: Normal Endocrine: Normal Hemo/Lymphatic: Normal Psychiatric: Normal <Mariano Cee Filed: 07/03/18 22:15> Physical Exam Vital Signs Temp Pulse Resp BP Pulse Ox 07/03/18 19:58 98.3 F 88 17 117/77 96 Temperature: Afebrile Blood Pressure: Normal Pulse: Regular Respiratory Rate: Normal Appearance: Positive for: Well-Appearing, Non-Toxic, Comfortable Pain Distress: None Mental Status: Positive for: Alert and Oriented X 3 - Systems Exam Head: Present: Atraumatic, Normocephalic Pupils: Present: PERRL Extroacular Muscles: Present: EOMI Conjunctiva: Present: Normal Mouth: Present: Moist Mucous Membranes Neck: Present: Normal Range of Motion Respiratory/Chest: Present: Clear to Auscultation, Good Air Exchange. No: Respiratory Distress, Accessory Muscle Use Cardiovascular: Present: Regular Rate and Rhythm, Normal S1, S2. No: Murmurs Abdomen: No: Tenderness, Distention, Peritoneal Signs Back: Present: Normal Inspection Upper Extremity: Present: Normal Inspection. No: Cyanosis, Edema Lower Extremity: Present: Normal Inspection. No: Edema Neurological: Present: GCS=15, CN II-XII Intact, Speech Normal Skin: Present: Warm, Dry, Normal Color. No: Rashes Psychiatric: Present: Alert, Oriented x 3, Normal Insight, Normal Concentration <Mariano Cee - Last Filed: 07/03/18 22:15> Vital Signs Temp Pulse Resp BP Pulse Ox 07/03/18 19:58 98.3 F 88 17 117/77 96 <Liban Maldonado - Last Filed: 07/05/18 05:44> Medical Decision Making ED Course and Treatment: 07/03/18 20:57 Impression: 42F w/ no significant PMH c/o suprapubic abdominal pain associated w/ menorhagia. r/o ectopic or gynecologic abnormality PLAN: Will performTVUS eval or given missing her previous cycle in may (less liekly) CBC/CMP POC BHCG UA Toradol Progress Notes: 07/03/18 22:15 Patient noted to have uterine fibroid on TVUS Will advise NSAID and outpt follow up w/ OBGYN - Dr. Urias <Mariano Cee - Last Filed: 07/03/18 22:15> ED Course and Treatment: Impression: Pt seen and evaluated with bilingual medical assistant. Aware and agree with HPI, clinical findings, plan, and management. Pt, with no significant past medical history, presented for lower abdominal pain. Plan: -- Transvaginal US -- Labs -- Urinalysis -- Toradol -- Reassess and disposition Transvaginal US: Measures 8.11 x 4.76 x 5.92 cm. Normal in size. Fibroid measures 2.22 x 2.66 x 2.03 cm. Endometrium Measures 15.7 mm in diameter. Unremarkable. Cervix Measures 3.84 cm. Nabothian cyst measures 1.2 x 0.5 cm. Right ovary Measures 2.19 x 2.15 x 2.2 cm. No solid mass. Normal flow. Cyst measures 1.37 x 1.22 x 1.66 cm. Left ovary Measures 1.78 x 1.65 x 1.52 cm. No solid mass. Normal flow. Cyst measures 0.99 x 0.8 x 0.73 cm. Free fluid No significant free fluid noted. Other Findings None. Impression 1. Nabothian cyst. 2. Uterine fibroid. 3. Bilateral ovarian cysts. Electronically signed on Jul 03, 2018 9:52:41 PM EST by: Karthik Anders M.D., REKHA Certified By ABR & CBC[facility] Fellowship Trained MRI and CT Specialist - Lab Interpretations I have reviewed the lab results: Yes - RAD Interpretation Radiology Orders: 07/03/18 20:44 TRANSVAGINAL [US] Stat Transmission Systems Operator: Radiologist - Medication Orders Current Medication Orders: Ketorolac Tromethamine (Toradol) 15 mg IVP STAT STA Stop: 02/26/19 21:09 <Liban Maldonado Last Filed: 07/05/18 05:44> - PA / HEALTH PROMOTION MANAGER / Resident Statement / has reviewed & agrees with the documentation as recorded. / has examined the patient and agrees with the treatment plan. <JoelLiban - Last Filed: 07/05/18 05:44> Disposition/Present on Arrival - Present on Arrival Any Indicators Present on Arrival: No History of DVT/PE: No History of Uncontrolled Diabetes: No Urinary Catheter: No History of Decub. Ulcer: No History Surgical Site Infection Following: None - Disposition Have Diagnosis and Disposition been Completed?: Yes Disposition Time: 22:18 Patient Plan: Discharge <Mariano Cee - Last Filed: 07/03/18 22:15> <Liban Maldonado - Last Filed: 07/05/18 05:44> - Disposition Diagnosis: Uterine fibroid Disposition: HOME/ ROUTINE Condition: GOOD Discharge Instructions (ExitCare): Uterine Fibroids (DC) Additional Instructions: Please follow up with OBGYN within 1 day of discharge If you do not have an OBGYN please follow up w/ Dr. Urias Please take OTC NSAID - Ibuprofen as needed for pain DEDRICK GAN, thank you for letting us take care of you today. Your provider was Liban Maldonado MD/ Mariano Cee DO and you were treated for ABDOMINAL PAIN, LOWER EXTREMITY PROBLEM. The emergency medical care you received today was directed at your acute symptoms. If you were prescribed any medication, please fill it and take as directed. It may take several days for your symptoms to resolve. Return to the Emergency Department if your symptoms worsen, do not improve, or if you have any other problems. Please contact your doctor or call one of the physicians/clinics you have been referred to that are listed on the Patient Visit Information form that is included in your discharge packet. Bring any paperwork you were given at discharge with you along with any medications you are taking to your follow up visit. Our treatment cannot replace ongoing medical care by a primary care provider outside of the emergency department. Thank you for allowing the [facility] team to be part of your care today. If you had an X-Ray or CT scan: A Radiologist will review the ED reading if any change in treatment is needed we will contact you. If you had a blood, urine, or wound culture: It will take several days for the results, if any change in treatment is needed we will contact you. If you had an STI test: It will take 48 hours for the results. Please call after 1 week if you have not heard back. Referrals: Jer Urias MD [Staff Provider] - Follow up with primary Forms: [employer] ([place]), WORK NOTE
[2018-07-03 21:42] LABS: BASO # 0.01 K/mm3 (0.0-2.0); BASO % 0.1 % (0.0-3.0); EOS # 0.7 (0.0-0.7); EOS % 7.5 % (1.5-5.0); HEMOGLOBIN 11.8 g/dL (12.0-16.0); LYMPH # 1.7 (1.2-3.4); LYMPH % 17.9 % (22.0-35.0); MEAN CORPUSCULAR HEMOGLOBIN 29.4 pg (25.0-35.0); MEAN PLATELET VOLUME 9.7 fl (7.0-11.0); MONO # 0.7 (0.1-0.6); MONO % 7.3 % (1.0-6.0); RBC 4.01 10^6/uL (3.5-6.1); RED CELL DISTRIBUTION WIDTH 15.6 % (11.5-14.5); WHITE BLOOD COUNT 9.3 10^3/uL (4.5-11.0)
[2018-07-03 21:43] LABS: ALB/GLOB RATIO 1.2 (1.1-1.8); ALBUMIN 4.1 g/dL (3.0-4.8); ALT/SGPT 11 U/L (7-56); AST/SGOT 18 U/L (14-36); BLOOD UREA NITROGEN 22 mg/dL (7-21); CALCIUM 8.9 mg/dL (8.4-10.5); GFR NON-AFRICAN AMERICAN > 60
[2018-07-03 22:33] VITALS: BP 115/62; PULSE 78; TEMP 98.2; O2SAT 98
--- NOTE | 2018-07-04 12:58 | US ---
Date of service: 07/03/2018 HISTORY: Lower Abdominal Pain COMPARISON: None available. TECHNIQUE: Transvaginal pelvic ultrasound was performed with longitudinal and transverse images submitted for interpretation. FINDINGS: UTERUS: Measures 8.1 x 4.8 x 5.9 cm. Myometrium is moderately heterogeneous with high submucous fibroid identified potentially exophytic within the endometrial cavity measuring 2.2 x 2.3 by 2.0 cm. It is slightly eccentric to the right. No additional myometrial pathology identified focally. ENDOMETRIUM: Measures 15.7 mm in diameter. No focal cystic or solid mass is seen related. CERVIX: Two high nabothian cysts are identified with the cervix otherwise unremarkable. RIGHT OVARY: Measures 2.2 x 2.1 x 2.2 cm. No solid mass. Normal flow. Simple cyst measures 1.4 x 1.2 x 1.7 LEFT OVARY: Measures 1.8 x 1.7 x 1.5 cm. No solid mass. Normal flow. 1.0 x 0.8 x 0.7 cm simple cyst identified. FREE FLUID: No significant free fluid noted. OTHER FINDINGS: None. IMPRESSION: Solitary uterine fibroid Suarez is remarkable for a submucous fibroid possibly exophytic into the endometrial cavity at the high fundus. Nabothian cysts are identified in the cervix. Solitary simple cysts are identified at each ovary as per above.
== END 2018-07-03 22:33 | disposition home or self-care (01) ==
LOC: ED 19:48
DX: D25.0 Submucous leiomyoma of uterus (principal); Z87.891 Personal history of nicotine dependence
CPT/HCPCS: 76830; 80053; 81025; 85025; 96374; 99283; J1885

== ENCOUNTER 2018-07-17 18:55 | Emergency (ER) | payer SELFPAY ==
[2018-07-17 19:01] VITALS: BMI 24.2
--- NOTE | 2018-07-17 19:48 | ED PDOC ---
Arrival/HPI - General Chief Complaint: Abdominal Pain Time Seen by Provider: 07/17/18 19:00 Historian: Patient - History of Present Illness Narrative History of Present Illness (Text): 07/17/18 19:40 Patient reports two day history of epigastric discomfort. Denies pressure or burning, describes the sensation as "feeling like hunger pains". She does state that she has had cravings for a lot of acidic foods lately. Discomfort is not always associated with eating, and is exacerbated when lying down. Also reports nausea and dry mouth. Denies dizziness, syncope, abdominal pain, or dyspnea. No previous medical history including HTN, DM, HLD. Nonsmoker. No family history of CVD. No recent surgery or travel. No hormonal medications. No leg pain or swelling. Time/Duration: < week Symptom Onset: Gradual Symptom Course: Unchanged Activities at Onset: Light Context: Home Past Medical History - Provider Review Nursing Documentation Reviewed: Yes - Past History Past History: No Previous - Infectious Disease Hx of Infectious Diseases: None - Tetanus Immunization Tetanus Immunization: Unknown - Reproductive Menopause: No - Cardiac Hx Cardiac Disorders: No - Pulmonary Hx Respiratory Disorders: No - Neurological Hx Neurological Disorder: No - HEENT Hx HEENT Disorder: No - Renal Hx Renal Disorder: No - Endocrine/Metabolic Hx Endocrine Disorders: No - Hematological/Oncological Hx Blood Disorders: No - Integumentary Hx Dermatological Disorder: No - Musculoskeletal/Rheumatological Hx Musculoskeletal Disorders: Yes - Gastrointestinal Hx Gastrointestinal Disorders: No - Genitourinary/Gynecological Hx Genitourinary Disorders: Yes Hx Urinary Tract Infection: Yes - Psychiatric Hx Psychophysiologic Disorder: No Hx Substance Use: No - Anesthesia Hx Anesthesia: No Hx Anesthesia Reactions: No Hx Malignant Hyperthermia: No - Suicidal Assessment Feels Threatened In Home Enviroment: No Family/Social History - Physician Review Nursing Documentation Reviewed: Yes Family/Social History: Other (NO FMhx of Cardiac disease) Smoking Status: Former Smoker Hx Alcohol Use: Yes Hx Substance Use: No Hx Substance Use Treatment: No Allergies/Home Meds Allergies/Adverse Reactions: Allergies No Known Allergies Allergy (Verified 07/03/18 19:58) Review of Systems - Physician Review All systems were reviewed & negative as marked: Yes - Review of Systems Constitutional: Normal. absent: Fevers ENT: Other (Dry mouth). absent: Hearing Changes, Sore Throat Respiratory: absent: SOB, Cough Cardiovascular: Other (Chest discomfort). absent: Syncope Gastrointestinal: Nausea. absent: Abdominal Pain, Diarrhea, Vomiting Musculoskeletal: absent: Arthralgias, Back Pain, Neck Pain Neurological: absent: Headache, Dizziness Physical Exam Vital Signs Reviewed: Yes Vital Signs Temp Pulse Resp BP Pulse Ox 07/17/18 19:14 98.6 F 111 H 20 120/61 100 Temperature: Afebrile Blood Pressure: Normal Pulse: Tachycardic Respiratory Rate: Normal Appearance: Positive for: Well-Appearing Mental Status: Positive for: Alert and Oriented X 3 - Systems Exam Head: Present: Atraumatic, Normocephalic Pupils: Present: PERRL Extroacular Muscles: Present: EOMI Mouth: Present: Moist Mucous Membranes Respiratory/Chest: Present: Clear to Auscultation, Good Air Exchange, Other (Chest nontender). No: Respiratory Distress, Accessory Muscle Use Cardiovascular: Present: Tachycardic Abdomen: No: Tenderness Upper Extremity: No: Swelling Lower Extremity: No: Swelling Neurological: Present: GCS=15, Speech Normal Skin: Present: Warm Psychiatric: Present: Alert, Oriented x 3, Normal Insight, Normal Concentration Medical Decision Making ED Course and Treatment: 07/17/18 18:54 Impression: 42 year old F presents to the Emergency department complaining of intermittent mid chest discomfort w/ dry mouth and nausea x2days while laying down. Plan: --Labs --EKG --CXR --Pepcid --Reassess and disposition Prior Visits: Notes and results from previous visits were reviewed. Progress Notes: 07/17/18 19:06 EKG shows Sinus Tachycardia at 116 BPM, normal axis, normal intervals, no acute ST/T wave abnormalities. Interpreted by me. Patient given 20mg pepcid PO. On re-eval patient appears comfortable, states that she feels "good", ready to go home. Results discussed. Rx written for pepcid. Advised outpatient followup. Return to the ED for any new or worsening symptoms. Repeat HR 90. - RAD Interpretation Narrative RAD Interpretations (Text): No acute disease noted. Radiology Orders: 07/17/18 19:34 CHEST PORTABLE [RAD] Stat Architectural Representative: ED Physician - Medication Orders Current Medication Orders: Famotidine (Pepcid) 20 mg PO STAT STA Stop: 07/17/18 19:38 - PA / RECRUITMENT COORDINATOR / Resident Statement MD/DO has reviewed & agrees with the documentation as recorded. - Scribe Statement The provider has reviewed the documentation as recorded by the Amanda Meneses All medical record entries made by the Amanda were at my direction and personally dictated by me. I have reviewed the chart and agree that the record accurately reflects my personal performance of the history, physical exam, medical decision making, and the department course for this patient. I have also personally directed, reviewed, and agree with the discharge instructions and disposition. Disposition/Present on Arrival - Present on Arrival Any Indicators Present on Arrival: No History of DVT/PE: No History of Uncontrolled Diabetes: No Urinary Catheter: No History of Decub. Ulcer: No History Surgical Site Infection Following: None - Disposition Have Diagnosis and Disposition been Completed?: Yes Diagnosis: GERD (gastroesophageal reflux disease) Disposition: HOME/ ROUTINE Disposition Time: 21:40 Patient Problems: Current Active Problems Problem Status Onset GERD (gastroesophageal reflux disease) Acute Condition: STABLE Discharge Instructions (ExitCare): Acid Reflux (Gastroesophageal Reflux Disease), Adult (DC) Additional Instructions: DEDRICK GAN, thank you for letting us take care of you today. Your provider was Silvia Willoughby MD and you were treated for UNUSUAL PAIN IN BELOW STERNUM, NAUSEA. The emergency medical care you received today was directed at your acute symptoms. If you were prescribed any medication, please fill it and take as directed. It may take several days for your symptoms to resolve. Return to the Emergency Department if your symptoms worsen, do not improve, or if you have any other problems. Please contact your doctor or call one of the physicians/clinics you have been referred to that are listed on the Patient Visit Information form that is included in your discharge packet. Bring any paperwork you were given at discharge with you along with any medications you are taking to your follow up visit. Our treatment cannot replace ongoing medical care by a primary care provider outside of the emergency department. Thank you for allowing the [facility] [employer] team to be part of your care today. If you had an X-Ray or CT scan: A Radiologist will review the ED reading if any change in treatment is needed we will contact you. If you had a blood, urine, or wound culture: It will take several days for the results, if any change in treatment is needed we will contact you. If you had an STI test: It will take 48 hours for the results. Please call after 1 week if you have not heard back. Prescriptions: Famotidine [Pepcid] 20 mg PO BID #30 tab Forms: [employer] (Italian)
[2018-07-17 19:50] LABS: BASO # 0.01 K/mm3 (0.0-2.0); BASO % 0.1 % (0.0-3.0); EOS # 0.4 (0.0-0.7); EOS % 5.1 % (1.5-5.0); HEMOGLOBIN 11.7 g/dL (12.0-16.0); LYMPH # 1.2 (1.2-3.4); LYMPH % 14.3 % (22.0-35.0); MEAN CELL VOLUME 92.6 fl (80.0-105.0); MEAN CORPUSCULAR HGB CONC 31.4 g/dl (31.0-37.0); MEAN PLATELET VOLUME 10.7 fl (7.0-11.0); MONO # 0.6 (0.1-0.6); MONO % 6.4 % (1.0-6.0); RBC 4.03 10^6/uL (3.5-6.1); RED CELL DISTRIBUTION WIDTH 16.8 % (11.5-14.5); WHITE BLOOD COUNT 8.7 10^3/uL (4.5-11.0)
[2018-07-17 21:14] LABS: ALB/GLOB RATIO 1.2 (1.1-1.8); ALBUMIN 4.2 g/dL (3.0-4.8); ALT/SGPT 15 U/L (7-56); AST/SGOT 23 U/L (14-36); BLOOD UREA NITROGEN 18 mg/dL (7-21); CALCIUM 9.4 mg/dL (8.4-10.5); GFR NON-AFRICAN AMERICAN > 60
[2018-07-17 21:25] VITALS: BP 116/62; PULSE 90; RESP 18; O2SAT 96
[2018-07-17 21:28] LABS: TROPONIN I < 0.01 ng/mL
[2018-07-17 21:37] VITALS: TEMP 98.4
--- NOTE | 2018-07-18 09:31 | CARD ---
APPROVED REPORT Date of service: 07/17/2018 EKG [facility] [id number] <Conclusion> Sinus tachycardia Biatrial enlargement Abnormal ECG
--- NOTE | 2018-07-18 10:37 | RAD ---
Date of service: 07/17/2018 HISTORY: Atypical substernal chest pain. COMPARISON: No prior. FINDINGS: LUNGS: No active pulmonary disease. PLEURA: No significant pleural effusion identified, no pneumothorax apparent. CARDIOVASCULAR: No atherosclerotic calcification present Normal. OSSEOUS STRUCTURES: No significant abnormalities. VISUALIZED UPPER ABDOMEN: Normal. OTHER FINDINGS: None. IMPRESSION: No active disease.
== END 2018-07-17 21:24 | disposition home or self-care (01) ==
LOC: ED 18:55
DX: K21.9 Gastro-esophageal reflux disease without esophagitis (principal); Z87.891 Personal history of nicotine dependence

== ENCOUNTER 2018-07-31 18:27 | Emergency (ER) | payer SELFPAY ==
[2018-07-31 18:28] VITALS: BMI 24.2
--- NOTE | 2018-07-31 20:07 | ED PDOC ---
Arrival/HPI - General Chief Complaint: Back Pain Time Seen by Provider: 07/31/18 18:44 Historian: Patient - History of Present Illness Narrative History of Present Illness (Text): 07/31/18 20:03 43-year-old female presents today with a 3-day history of right hip pain radiating into the right leg. Patient states she has pain that starts around the buttocks wraps into the right hip and radiates down the posterior thigh. Patient denies back pain. Denies fevers or chills. Denies urinary symptoms. Denies numbness weakness or tingling in the extremities. Patient states she took Advil without improvement of the pain. Patient denies trauma or injury. No other complaints Past Medical History - Provider Review Nursing Documentation Reviewed: Yes - Travel History Have you recently traveled outside [place] w/in the past 3 mons?: No - Past History Past History: No Previous - Infectious Disease Hx of Infectious Diseases: None - Tetanus Immunization Tetanus Immunization: Unknown - Cardiac Hx Cardiac Disorders: No - Pulmonary Hx Respiratory Disorders: No - Neurological Hx Neurological Disorder: No - HEENT Hx HEENT Disorder: No - Renal Hx Renal Disorder: No - Endocrine/Metabolic Hx Endocrine Disorders: No - Hematological/Oncological Hx Blood Disorders: No - Integumentary Hx Dermatological Disorder: No - Musculoskeletal/Rheumatological Hx Musculoskeletal Disorders: No - Gastrointestinal Hx Gastrointestinal Disorders: No - Genitourinary/Gynecological Hx Genitourinary Disorders: Yes Hx Urinary Tract Infection: Yes - Psychiatric Hx Psychophysiologic Disorder: No Hx Substance Use: No - Anesthesia Hx Anesthesia: No Hx Anesthesia Reactions: No Hx Malignant Hyperthermia: No - Suicidal Assessment Feels Threatened In Home Enviroment: No Family/Social History - Physician Review Nursing Documentation Reviewed: Yes Family/Social History: Unknown Family HX Smoking Status: Former Smoker Hx Alcohol Use: Yes Hx Substance Use: No Hx Substance Use Treatment: No Allergies/Home Meds Allergies/Adverse Reactions: Allergies No Known Allergies Allergy (Verified 07/31/18 18:39) Review of Systems - Review of Systems Constitutional: absent: Fatigue, Fevers Respiratory: absent: SOB, Cough Cardiovascular: absent: Chest Pain, Palpitations Gastrointestinal: absent: Abdominal Pain, Constipation, Diarrhea, Nausea, Vomiting Genitourinary Female: absent: Dysuria, Frequency, Hematuria Musculoskeletal: Arthralgias. absent: Back Pain, Neck Pain Skin: absent: Rash, Pruritis Neurological: absent: Headache, Dizziness Psychiatric: absent: Anxiety, Depression Physical Exam Vital Signs Reviewed: Yes Vital Signs Temp Pulse Resp BP Pulse Ox 07/31/18 18:38 98.7 F 100 H 19 117/70 95 Temperature: Afebrile Blood Pressure: Normal Pulse: Tachycardic Respiratory Rate: Normal Appearance: Positive for: Well-Appearing, Non-Toxic, Comfortable Pain Distress: None Mental Status: Positive for: Alert and Oriented X 3 - Systems Exam Head: Present: Atraumatic Mouth: Present: Moist Mucous Membranes Neck: Present: Normal Range of Motion Respiratory/Chest: Present: Clear to Auscultation, Good Air Exchange. No: Respiratory Distress, Accessory Muscle Use Cardiovascular: Present: Regular Rate and Rhythm, Normal S1, S2. No: Murmurs Abdomen: No: Tenderness, Distention, Rebound, Guarding Back: Present: Normal Inspection, Pain with Leg Raise, Other (+ ttp over right sciatic foramen. ). No: CVA Tenderness, Midline Tenderness, Paraspinal Tenderness Upper Extremity: Present: Normal Inspection, Normal ROM Lower Extremity: Present: Normal Inspection, NORMAL PULSES, Normal ROM, Tenderne ss (Right hip; + ttp over anterior hip; full rom of hip with pain; + ttp over anterior and posterior thigh. no edema, no erythema; no ecchymosis; sensation and distal pulses intact. cap refill <2. ). No: CALF TENDERNESS Neurological: Present: GCS=15, Speech Normal Skin: Present: Warm, Dry, Normal Color. No: Rashes Psychiatric: Present: Alert, Oriented x 3 Medical Decision Making ED Course and Treatment: 07/31/18 20:08 Patient nontoxic well-appearing in no distress with stable vital signs. Toradol, Flexeril, X-rays of the right hip: No fracture Venous duplex of the right lower extremity: No DVT Patient reassessment: Feeling better with medications ambulating with a steady gait. Muscle strength 5 out of 5 bilaterally. I advised to followup with the orthopedist within the next 2 days. Return if symptoms worsen persist or new symptoms develop Patient verbalizes understanding of discharge instructions and need for immediate followup. All aspects of this case were discussed the attending of record. Impression: leg pain, Motrin every 6 hours as needed for pain Flexeril one tablet every 8 hours as needed for muscle spasms: May cause drowsiness Followup with the orthopedist within the next 2 days Followup with primary care physician within the next 2 days Return if symptoms worsen persist or if new symptoms develop 07/31/18 22:14 Reassessment Condition: Re-examined, Improved - RAD Interpretation Radiology Orders: 07/31/18 19:40 Hip Right [HIP MIN 2V W/ PELVIS RT] [RAD] Stat DUPLEX LOWER EXTRM VEIN RIGHT [US] Stat Disposition/Present on Arrival - Present on Arrival Any Indicators Present on Arrival: No History of DVT/PE: No History of Uncontrolled Diabetes: No Urinary Catheter: No History of Decub. Ulcer: No History Surgical Site Infection Following: None - Disposition Have Diagnosis and Disposition been Completed?: Yes Diagnosis: Leg pain, Hip pain Disposition: HOME/ ROUTINE Disposition Time: 20:08 Patient Plan: Discharge Condition: GOOD Discharge Instructions (ExitCare): Muscle and Bone Pain (DC), Sciatica Additional Instructions: Motrin every 6 hours as needed for pain Flexeril one tablet every 8 hours as needed for muscle spasms: May cause drowsiness Followup with the orthopedist within the next 2 days Followup with primary care physician within the next 2 days Return if symptoms worsen persist or if new symptoms develop Prescriptions: Cyclobenzaprine [Cyclobenzaprine HCl] 10 mg PO Q8 #10 tab Ibuprofen [Motrin] 600 mg PO Q6H PRN #20 tab PRN Reason: pain/fever reduction Referrals: Azalia Dunn MD [Medical Doctor] - Follow up with primary Giles Brooks III, MD [Medical Doctor] - Follow up with primary Forms: [employer] (Hungarian), WORK NOTE
[2018-07-31 20:46] VITALS: RESP 18; TEMP 97.6
[2018-07-31 22:15] VITALS: BP 115/72; PULSE 63; O2SAT 100
--- NOTE | 2018-08-01 09:00 | US ---
PROCEDURE: Right lower extremity venous US HISTORY: Leg pain and swelling. Evaluate for DVT. PHYSICIAN(S): James Box M.D. TECHNIQUE: Duplex sonography and color-flow Doppler with graded compression were used to evaluate the deep venous system of the right lower extremity. FINDINGS: The visualized deep venous system of the right lower extremity is sonographically normal and compressible. Normal waveforms and augmentation are seen. There is no sonographic evidence for deep venous thrombosis in the visualized segments of the right lower extremity. IMPRESSION: 1. No sonographic evidence for deep venous thrombosis in the visualized segments of the right lower extremity.
--- NOTE | 2018-08-01 09:52 | RAD ---
PROCEDURE: Right Hip and pelvis radiographs. HISTORY: hip pain COMPARISON: None. TECHNIQUE: 2 views obtained. FINDINGS: BONES: Normal. No fracture. JOINTS: Normal. SOFT TISSUES: Normal. OTHER FINDINGS: None. IMPRESSION: Negative study
== END 2018-07-31 22:40 | disposition home or self-care (01) ==
LOC: ED 18:27
DX: M25.551 Pain in right hip (principal); M79.604 Pain in right leg; Z87.891 Personal history of nicotine dependence
CPT/HCPCS: 73502; 81025; 93971; 96372; 99283; J1885

== ENCOUNTER 2018-09-19 17:31 | Emergency (ER) | payer SELFPAY ==
[2018-09-19 17:32] VITALS: BMI 24.2
[2018-09-19 18:16] VITALS: BP 96/66
[2018-09-19] MEDS ORDERED: Albuterol-Ipratrop 3 mg / 0.5 (3 ml) UD IH STA (18:17)
[2018-09-19] MEDS ORDERED: guaiFENesin 600 mg ER Tab PO ONE (18:17)
--- NOTE | 2018-09-19 18:22 | ED PDOC ---
Arrival/HPI - General Chief Complaint: Cough, Cold, Congestion Time Seen by Provider: 09/19/18 18:17 Historian: Patient - History of Present Illness Narrative History of Present Illness (Text): 09/19/18 18:18 CC: Chest Congestion HPI: 43 yo female w/ PMH of seasonal allergies comes to ED for evaluation of 1 week of chest congestion. Patient states it has progressively been worsening making it difficult to catch her breath at times. 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 Patient did not take any home medications. Patient did not get flu vaccine this year. Patient states she feels her sinuses are congested and her chest as well. Patient wants to cough up sputum but unable to do so because the mucus is stuck. Admits to congestion and ARENAS. Denies headaches, fevers, chills, chest pain, n/v, constipation or diarrhea, and dysuria. Time/Duration: > week Symptom Onset: Gradual Symptom Course: Worsening Quality: Tightness Activities at Onset: Rest Context: Exertion Past Medical History - Provider Review Nursing Documentation Reviewed: Yes - Past History Past History: No Previous - Infectious Disease Hx of Infectious Diseases: None - Tetanus Immunization Tetanus Immunization: Unknown - Reproductive Menopause: No - Cardiac Hx Cardiac Disorders: No - Pulmonary Hx Respiratory Disorders: No - Neurological Hx Neurological Disorder: No - HEENT Hx HEENT Disorder: No - Renal Hx Renal Disorder: No - Endocrine/Metabolic Hx Endocrine Disorders: No - Hematological/Oncological Hx Blood Disorders: No - Integumentary Hx Dermatological Disorder: No - Musculoskeletal/Rheumatological Hx Musculoskeletal Disorders: No - Gastrointestinal Hx Gastrointestinal Disorders: No - Genitourinary/Gynecological Hx Genitourinary Disorders: Yes Hx Urinary Tract Infection: Yes - Psychiatric Hx Psychophysiologic Disorder: No Hx Substance Use: No - Anesthesia Hx Anesthesia: No Hx Anesthesia Reactions: No Hx Malignant Hyperthermia: No - Suicidal Assessment Feels Threatened In Home Enviroment: No Family/Social History Family/Social History: No Known Family HX Smoking Status: Former Smoker Hx Alcohol Use: Yes Hx Substance Use: No Hx Substance Use Treatment: No Allergies/Home Meds Allergies/Adverse Reactions: Allergies No Known Allergies Allergy (Verified 07/31/18 18:39) Review of Systems - Physician Review All systems were reviewed & negative as marked: Yes - Review of Systems Constitutional: Normal. absent: Fatigue, Weight Change, Fevers Eyes: Normal ENT: Normal. absent: Hearing Changes, Tinnitus Respiratory: SOB, Cough, Wheezing. absent: Sputum Cardiovascular: Normal, ARENAS. absent: Chest Pain, Palpitations, Edema, Orthopnea Gastrointestinal: Normal. absent: Abdominal Pain, Stool Changes, Constipation, Diarrhea, Nausea, Vomiting Genitourinary Female: Normal. absent: Dysuria, Frequency, Hematuria Musculoskeletal: Normal. absent: Arthralgias, Myalgias Skin: Normal. absent: Rash Neurological: Normal. absent: Headache, Dizziness, Focal Weakness Endocrine: Normal. absent: Diaphoresis, Polyuria Psychiatric: Normal. absent: Anxiety, Depression Physical Exam Vital Signs Reviewed: Yes Vital Signs Temp Pulse Resp BP Pulse Ox 09/19/18 17:58 99.4 F 118 H 20 96/66 L 98 Repeating another set of vital signs in ED room, prior VS were in waiting room Temperature: Afebrile Respiratory Rate: Normal Appearance: Positive for: Well-Appearing, Non-Toxic, Comfortable. No: Ill- Appearing, Unkept Pain Distress: None Mental Status: Positive for: Alert and Oriented X 3 - Systems Exam Head: Present: Atraumatic, Normocephalic. No: Tenderness Pupils: Present: PERRL. No: Sluggish Extroacular Muscles: Present: EOMI Conjunctiva: Present: Normal. No: Injected Mouth: Present: Moist Mucous Membranes Pharnyx: Present: Muffled/Hoarse Voice. No: EXUDATE Neck: Present: Normal Range of Motion. No: Meningeal Signs, JVD Respiratory/Chest: Present: Good Air Exchange, Wheezes. No: Respiratory Distress, Accessory Muscle Use, Decreased Breath Sounds, Rales, Rhonchi, Tachypneic Cardiovascular: Present: Regular Rate and Rhythm, Normal S1, S2. No: Murmurs Abdomen: Present: Normal Bowel Sounds. No: Tenderness, Distention, Peritoneal Signs, Rebound, Guarding Upper Extremity: Present: Normal Inspection. No: Cyanosis, Edema Lower Extremity: Present: Normal Inspection. No: Edema Neurological: Present: GCS=15, CN II-XII Intact, Speech Normal Skin: Present: Warm, Dry, Normal Color. No: Rashes Psychiatric: Present: Alert, Oriented x 3, Normal Insight, Normal Concentration Medical Decision Making ED Course and Treatment: 09/19/18 18:27 Impression 43 yo female comes to ED for evaluation of 1 week ongoing chest congestion and sinus congestion. Likely 2/2 to viral respiratory infection Plan -Duoneb -Mucinex Prior Visits All prior visits documentation and lab work reviewed for this evaluation Progress Notes Patient will get a breathing treatment and mucinex After breathing patient will be reassessed and given a Z-pack for empiric treatment due to prolonged illness (>1 week) Re-evaluation Time: 18:36 Reassessment Condition: Re-examined, Improving,but remains with symptoms Disposition/Present on Arrival - Present on Arrival Any Indicators Present on Arrival: No History of DVT/PE: No History of Uncontrolled Diabetes: No Urinary Catheter: No History of Decub. Ulcer: No History Surgical Site Infection Following: None - Disposition Have Diagnosis and Disposition been Completed?: Yes Diagnosis: Chest congestion, Sinusitis Disposition: HOME/ ROUTINE Disposition Time: 18:37 Patient Plan: Discharge Condition: FAIR Additional Instructions: 1. Patient is stable for discharge to home 2. Patient will be given an empiric trial of a Z-pack for bacterial coverage (due to prolonged illness) 3. Patient was recommended to use mucinex and Vicks OTC for symptomatic control 4. Patient was instructed to return to hospital if symptoms worsen or recur.
[2018-09-19 19:24] VITALS: PULSE 89; RESP 18; TEMP 98; O2SAT 99
== END 2018-09-19 19:24 | disposition home or self-care (01) ==
LOC: ED 17:31
DX: J32.9 Chronic sinusitis, unspecified (principal); R09.89 Other specified symptoms and signs involving the circulatory and respiratory systems; Z87.891 Personal history of nicotine dependence